=== PATIENT | female | born 1935 | race Caucasian/White ===

== ENCOUNTER 2020-03-22 13:23 | Outpatient (CLI) | payer MEDICARE, SELFPAY ==
--- NOTE | ~2020-03-22 | DEXA_ITS ---
Bone Density Report Name: Anita Lafleur Age: 85 Sex: Female Ethnicity: White Date of : 1935 Indication: screening for osteoporosis; height loss; Referring Provider: Hannah*Cezar, Jame Study: Bone densitometry was performed. Exam Date: March 22, 2020 Accession number: [id number] Bone Density: Region BMD T-score Z-score Classification AP Spine(L1, L2, L3) 1.539 4.7 7.5 Normal Femoral Neck (Left) 0.906 0.5 3.0 Normal Total Hip (Left) 0.974 0.3 2.6 Normal Femoral Neck (Right) 0.862 0.1 2.6 Normal Total Hip (Right) 0.985 0.4 2.7 Normal Femoral Neck Mean 0.884 0.3 2.8 Normal Total Hip Mean 0.979 0.3 2.6 Normal World Health Organization criteria for BMD impression classify patients as: Normal (T-score at or above -1.0), Osteopenia (T-score between -1.0 and -2.5), or Osteoporosis (T-score at or below -2.5). 10-year Fracture Risk: FRAX not reported because: Premenopausal woman All T-scores for Spine Total, Hip Total, Femoral Neck at or above -1.0 Clinical Information Provided by Patient: Has used the following medications: Actonel (i.e. risedronate), Vitamin D, Calcium Patient maximum height was 66 Menopause Age: 50 No regular weight bearing exercise Does not regularly consume dairy products Onset of menses at age 12 Premenopausal Number of children 2 Impression: The patient's bone mass is within expected range for age, gender and ethnicity. Discussion: BONE DENSITY IS WITHIN EXPECTED LIMITS FOR AGE, SEX AND RACE. Bone density is within expected limits for age, sex and race at all sites measured. The patient should follow a healthful lifestyle (good nutrition with adequate calcium and vitamin D, and appropriate weight-bearing exercise). Follow-Up: Consider repeating this study in 5 years or sooner if there is some new clinical indication. Reported by: Dr. Shan Cooney on 03/22/2020 2:04:00 PM. Reviewed, dictated and finalized at location [facility]
== END 2020-03-22 13:24 | disposition home or self-care (01) ==
LOC: CHSIMG 13:33
PROVIDERS: PCP Family Medicine; Visit Provider Family Medicine
DX: Z78.0 Asymptomatic menopausal state (principal)
CPT/HCPCS: 77080